=== PATIENT | female | born 1950 | race Caucasian/White ===

== ENCOUNTER → 2017-05-01 | Outpatient (CLI) | payer MEDICARE ==
--- NOTE | 2017-05-02 14:38 | MM ---
Reason for exam: screening (asymptomatic). Last mammogram was performed 1 year and 1 month ago. History: Patient is postmenopausal. Benign stereotactic core biopsy of the left breast, July 12, 2003. Benign stereotactic core biopsy of the left breast, May 14, 2002. 2 benign core biopsies of the left breast. Physical Findings: A clinical breast exam by your physician is recommended on an annual basis and results should be correlated with mammographic findings. MG 3D Screening Mammo W/Cad Bilateral CC and MLO view(s) were taken. Prior study comparison: April 10, 2016, bilateral MG 3d screening mammo w/cad. January 19, 2015, bilateral MG screening mammo w CAD. There are scattered fibroglandular densities. Finding: There are typically benign round calcifications in the left breast. Previous mammotome biopsy in the left breast x 2. There is a chronic nodularity bilaterally. There is no dominant lesion. ASSESSMENT: Benign, BI-RAD 2 RECOMMENDATION: Routine screening mammogram of both breasts in 1 year.
== END ==
LOC: RADMAMWWP 10:59
PROVIDERS: ATTEND Family Medicine
DX: Z12.31 Encounter for screening mammogram for malignant neoplasm of breast (principal)
CPT/HCPCS: 77063; G0202

== ENCOUNTER → 2017-05-03 | Outpatient (CLI) | payer MEDICARE ==
[2017-05-03 09:18] LABS: ALT 30 U/L (9-52); AST 18 U/L (14-36); Alkaline Phosphatase 102 U/L (38-126); Anion Gap 7 mmol/L; Blood Urea Nitrogen 15 mg/dL (7-17); Carbon Dioxide 30 mmol/L (22-30); Chloride 104 mmol/L (98-107); Cholesterol 219 mg/dL (<200); Glucose 103 mg/dL (74-99); HDL Cholesterol 64 mg/dL (40-60); Non-African American GFR(MDRD) >60 (>60 ml/min/1.73 sqM); Potassium 4.8 mmol/L (3.5-5.1); Sodium 141 mmol/L (137-145); Total Bilirubin 0.3 mg/dL (0.2-1.3); Total Protein 6.8 g/dL (6.3-8.2)
[2017-05-03 09:51] LABS: Aty Lym Flag Slight; CH 29.8; CHCM 33.3; HCT 42.2 % (34.0-46.0); HDW 2.73; HGB 13.7 gm/dL (11.4-16.0); MCH 29.1 pg (25.0-35.0); MCHC 32.4 g/dL (31.0-37.0); MCV 89.9 fL (80.0-100.0); Mean Platelet Volume 6.8; RBC 4.69 m/uL (3.80-5.40); RDW 12.9 % (11.5-15.5); WBC 4.7 k/uL (3.8-10.6); WBC (Perox) 4.71
[2017-05-03 11:21] LABS: Add Differential Manual Differential
[2017-05-03 11:26] LABS: Manual Review Performed; Nucleated Red Blood Cells 0 /100 WBC (0-0); Total Cells Counted 100
== END | disposition home or self-care (01) ==
LOC: LABWHC1 08:36
PROVIDERS: ATTEND Family Medicine
DX: I10 Essential (primary) hypertension (principal)
CPT/HCPCS: 36415; 80053; 80061; 84443; 85025

== ENCOUNTER → 2018-04-29 | Outpatient (CLI) | payer MEDICARE ==
[2018-04-29 07:53] LABS: HCT 40.1 % (34.0-46.0); HGB 13.3 gm/dL (11.4-16.0); MCH 29.4 pg (25.0-35.0); MCHC 33.3 g/dL (31.0-37.0); MCV 88.3 fL (80.0-100.0); Mean Platelet Volume 7.4; Platelet Count 223 k/uL (150-450); RBC 4.55 m/uL (3.80-5.40); RDW 13.7 % (11.5-15.5); WBC 3.9 k/uL (3.8-10.6)
[2018-04-29 08:33] LABS: Band Neutrophils % 1 %; Eosinophils # (M) 0.08 k/uL (0-0.7); Lymphocytes # (M) 1.25 k/uL (1.0-4.8); Monocytes # (M) 0.27 k/uL (0-1.0); Neutrophils % (M) 58 %; Nucleated Red Blood Cells 0 /100 WBC (0-0); Total Cells Counted 100
[2018-04-29 11:32] LABS: Albumin 4.2 g/dL (3.80-4.90); Albumin/Globulin Ratio 2.33 (1.20-2.10); Anion Gap 6.3 mmol/L (4.00-12.00); Calcium 9.7 mg/dL (8.7-10.3); Carbon Dioxide 28.7 mmol/L (21.6-31.8); Globulin 1.8 g/dL (2.1-3.7); Potassium 3.7 mmol/L (3.5-5.5); Total Bilirubin 0.3 mg/dL (0.2-1.2)
== END | disposition home or self-care (01) ==
LOC: LABWHC1 06:43
PROVIDERS: ATTEND Family Medicine
DX: I10 Essential (primary) hypertension (principal); R59.9 Enlarged lymph nodes, unspecified
CPT/HCPCS: 36415; 80053; 80061; 84443; 85025

== ENCOUNTER → 2019-05-07 | Outpatient (CLI) | payer MEDICARE ==
[2019-05-07 09:10] LABS: HCT 41.5 % (34.0-46.0); HGB 13.8 gm/dL (11.4-16.0); MCH 29.9 pg (25.0-35.0); MCHC 33.4 g/dL (31.0-37.0); MCV 89.7 fL (80.0-100.0); Mean Platelet Volume 6.2; Platelet Count 252 k/uL (150-450); RBC 4.62 m/uL (3.80-5.40); RDW 13.4 % (11.5-15.5); WBC 4.5 k/uL (3.8-10.6)
[2019-05-07 10:47] LABS: Band Neutrophils % 1 %; Eosinophils # (M) 0.09 k/uL (0-0.7); Lymphocytes # (M) 0.81 k/uL (1.0-4.8); Monocytes # (M) 0.32 k/uL (0-1.0); Neutrophils % (M) 72 %; Nucleated Red Blood Cells 0 /100 WBC (0-0); Total Cells Counted 100
[2019-05-07 10:48] LABS: Anisocytosis (M) Present
[2019-05-07 18:28] LABS: African American GFR (CKD) 87.8 (60.0-200.0); Albumin 4.4 g/dL (3.80-4.90); Albumin/Globulin Ratio 2.2 (1.60-3.17); Anion Gap 11.8 mmol/L (4.00-12.00); BUN/Creat Ratio 26.25 Ratio (12.00-20.00); Carbon Dioxide 25.2 mmol/L (21.6-31.8); Chol/HDL Ratio 2.75; LDL Cholesterol,Calculated 116.8 mg/dL (0.0-131.0); Potassium 4.4 mmol/L (3.5-5.5); Total Bilirubin 0.5 mg/dL (0.2-1.2); Total Protein 6.4 g/dL (6.2-8.2); VLDL Calculation 16.2 mg/dL (5.00-40.00)
== END | disposition home or self-care (01) ==
LOC: LABWHC1 08:02
PROVIDERS: ATTEND Family Medicine
DX: I10 Essential (primary) hypertension (principal)
CPT/HCPCS: 36415; 80053; 80061; 84443; 85025

== ENCOUNTER → 2019-06-22 | Outpatient (CLI) | payer MEDICARE ==
--- NOTE | 2019-06-25 10:43 | MM ---
Reason for exam: screening (asymptomatic). Last mammogram was performed 1 year and 1 month ago. History: Patient is postmenopausal. Benign stereotactic core biopsy of the left breast, July 12, 2003. Benign stereotactic core biopsy of the left breast, May 14, 2002. 2 benign core biopsies of the left breast. Physical Findings: A clinical breast exam by your physician is recommended on an annual basis and results should be correlated with mammographic findings. MG 3D Screening Mammo W/Cad Bilateral CC and MLO view(s) were taken. Prior study comparison: May 21, 2018, bilateral MG 3d screening mammo w/cad. May 01, 2017, bilateral MG 3d screening mammo w/cad. The breast tissue is heterogeneously dense. This may lower the sensitivity of mammography. There are benign appearing round linear calcifications bilaterally. Previous mammotome biopsy in the left breast x 2. There is chronic nodularity bilaterally. There is no discrete abnormality. ASSESSMENT: Benign, BI-RAD 2 RECOMMENDATION: Routine screening mammogram of both breasts in 1 year.
== END | disposition home or self-care (01) ==
LOC: RADMAMWWP 15:59
PROVIDERS: ATTEND Family Medicine
DX: Z12.31 Encounter for screening mammogram for malignant neoplasm of breast (principal)
CPT/HCPCS: 77063; 77067

== ENCOUNTER → 2020-05-17 | Outpatient (CLI) | payer MEDICARE ==
[2020-05-17 08:35] LABS: HGB 13.8 gm/dL (11.4-16.0); MCH 28.9 pg (25.0-35.0); MCHC 32.1 g/dL (31.0-37.0); MCV 90.2 fL (80.0-100.0); Mean Platelet Volume 8.1; Platelet Count 229 k/uL (150-450); RBC 4.77 m/uL (3.80-5.40); RDW 13.6 % (11.5-15.5); WBC 4.7 k/uL (3.8-10.6)
[2020-05-17 13:58] LABS: Eosinophils # (M) 0.09 k/uL (0-0.7); Lymphocytes # (M) 1.18 k/uL (1.0-4.8); Monocytes # (M) 0.42 k/uL (0-1.0); Neutrophils # (M) 3.01 k/uL (1.3-7.7); Neutrophils % (M) 64 %; Nucleated Red Blood Cells 0 /100 WBC (0-0); Total Cells Counted 100
[2020-05-17 16:00] LABS: African American GFR (CKD) 87.2 (60.0-200.0); Albumin 4.4 g/dL (3.80-4.90); Albumin/Globulin Ratio 2.2 (1.60-3.17); Anion Gap 7.9 mmol/L (4.00-12.00); BUN/Creat Ratio 31.25 Ratio (12.00-20.00); Carbon Dioxide 27.1 mmol/L (21.6-31.8); Chol/HDL Ratio 2.63; LDL Cholesterol,Calculated 100.4 mg/dL (0.0-131.0); Non-African American GFR(CKD) 75.2 (60.0-200.0); Total Bilirubin 0.4 mg/dL (0.3-1.2); Total Protein 6.4 g/dL (6.2-8.2); VLDL Calculation 13.6 mg/dL (5.00-40.00)
== END | disposition home or self-care (01) ==
LOC: LABWHC1 07:36
PROVIDERS: ATTEND Family Medicine
DX: I10 Essential (primary) hypertension (principal)
CPT/HCPCS: 36415; 80053; 80061; 84443; 85025

== ENCOUNTER → 2020-08-18 | Outpatient (CLI) | payer MEDICARE ==
--- NOTE | 2020-08-19 13:51 | MM ---
Reason for exam: screening (asymptomatic). Last mammogram was performed 1 year and 2 months ago. History: Patient is postmenopausal. Benign stereotactic core biopsy of the left breast, July 12, 2003. Benign stereotactic core biopsy of the left breast, May 14, 2002. 2 benign core biopsies of the left breast. Physical Findings: A clinical breast exam by your physician is recommended on an annual basis and results should be correlated with mammographic findings. MG 3D Screening Mammo W/Cad Bilateral CC and MLO view(s) were taken. Prior study comparison: June 22, 2019, bilateral MG 3d screening mammo w/cad. May 21, 2018, bilateral MG 3d screening mammo w/cad. The breast tissue is heterogeneously dense. This may lower the sensitivity of mammography. Stable benign calcifications. There is no discrete abnormality. No significant changes when compared with prior studies. ASSESSMENT: Benign, BI-RAD 2 RECOMMENDATION: Routine screening mammogram of both breasts in 1 year.
== END | disposition home or self-care (01) ==
LOC: RADMAMWWP 07:04
PROVIDERS: ATTEND Family Medicine
DX: Z12.31 Encounter for screening mammogram for malignant neoplasm of breast (principal)
CPT/HCPCS: 77063; 77067